=== PATIENT | male | born 1970 | race Caucasian/White ===

== ENCOUNTER 2017-01-10 09:09 | Inpatient (IN) | payer BC ==
[~2017-01-10] VITALS: Ht 182.9 cm; Wt 103.7 kg
[2017-01-10] VITALS (17 sets, daily range): BP systolic 97–127; BP diastolic 53–76; PULSE 54–74; RESP 12–20; Ht 182.9 cm; Wt 103.7 kg
[~2017-01-10 09:09] MED LIST: LOSA50TA6 PO
[2017-01-10] MEDS ORDERED: MELO-216 PO (09:56)
[2017-01-10] MEDS ORDERED: GABA100C14 PO (09:57)
--- NOTE | 2017-01-10 10:24 | HPN ---
Date/Time of Note Date/Time of Note DATE: 01/10/17 TIME: 10:24 Interval H&P Admission Note Pt. seen H&P reviewed: No system changes ELLY ARROYO PA-C Jan 10, 2017 10:24
[2017-01-10] MEDS ORDERED: TRANEXAMIC ACID 1,000 MG in SOD CHLORIDE 0.9% 100 ML IV ONE ×4 (10:30)
[2017-01-10] MEDS ORDERED: CEFAZOLIN 2 GM/50 ML (PMX) 50 ML IVPB SCH (10:30)
[2017-01-10] MEDS ORDERED: DIPHENHYDRAMINE 50 MG INJ IV PRN ×2 (12:00)
[2017-01-10] MEDS ORDERED: METOCLOPRAMIDE 10 MG INJ IV PRN (12:00)
[2017-01-10] MEDS ORDERED: HYDROmorphONE (0.2 MG/ML) 10ML SYG IV PRN ×4 (12:00)
[2017-01-10] MEDS ORDERED: MEPERIDINE 25 MG INJ IV PRN ×2 (12:00)
[2017-01-10] MEDS ORDERED: FENTAnyl 50 MCG/ML VIAL IV PRN ×4 (12:00)
[2017-01-10] MEDS ORDERED: ONDANSETRON 4 MG INJ IV PRN (12:00)
[2017-01-10] MEDS ORDERED: POLYMYXIN/BACITRACIN 1L IRRIG ONE (12:38)
[2017-01-10] MEDS ORDERED: ROCURONIUM 50 MG INJ ONE (13:26)
[2017-01-10] MEDS ORDERED: SUGAMMADEX SODIUM 200 MG/2 ML VIAL IV ONE (13:26)
[2017-01-10] MEDS ORDERED: SUCCINYLCHOLINE CHLORIDE 100 MG/5 ML SYG IV ONE (13:26)
[2017-01-10] MEDS ORDERED: PROPOFOL 20 ML ONE (13:26)
[2017-01-10] MEDS ORDERED: CEFAZOLIN 1 GM INJ ONE (13:26)
[2017-01-10] MEDS ORDERED: LIDOCAINE 2% (SDV) 5 ML INJ ONE (13:26)
[2017-01-10] MEDS ORDERED: FENTAnyl 50 MCG/ML VIAL ONE (13:47)
[2017-01-10] MEDS ORDERED: morphine SULFATE/PF (10 MG/10 ML) INJ ONE (13:58)
[2017-01-10] MEDS ORDERED: BUPIVACAINE 0.5%/EPI (SDV) 30 ML INJ ONE (13:58)
[2017-01-10] MEDS ORDERED: KETOROLAC 30 MG INJ ONE (13:58)
--- NOTE | 2017-01-10 14:55 | SIPON ---
Date/Time of Note Date/Time of Note DATE: 01/10/17 TIME: 14:53 Operative Report Preoperative Diagnosis Left hip osteoarthritis Postoperative Diagnosis Same Operation/Procedure Performed Left total hip replacement Surgeon see signature line chemist assistant none Second assist: ELLY ARROYO PA-C Anesthesia: spinal Estimated blood loss: 150 - 200 ml's Transfusion Required none Specimen Femoral head Grafts/Implants depuy 13 stem, 60 acetabulum, 36+5 ceramic head Complications none NICOLAS JORGENSEN Jan 10, 2017 14:55
--- NOTE | 2017-01-10 15:00 | OPR ---
Date/Time of Note Date/Time of Note DATE: 01/10/17 TIME: 14:55 Operative Report Procedure Date: Jan 10, 2017 Preoperative Diagnosis Left hip osteoarthritis Postoperative Diagnosis same Operation/Procedure Performed Left total hip replacement Surgeon see signature line Senior Developer None Second Senior Developer: ELLY ARROYO PA-C Anesthesia Type: spinal Estimated Blood Loss: 150 - 200 ml's Transfusion none Specimen none Grafts/Implants depuy size 13 stem, 60 mm acetabulum, 36 mm femoral head Tubes/Drains None Complications none Pt Condition Post Procedure: stable Disposition: PACU Indications 46-year-old male with advanced osteoarthritis of his left hip Procedure Description The patient was placed supine on the operating room table. The left hip was prepped and draped in usual manner. Preoperative antibiotics were administered. An anterior approach to the left hip was made. The plane between the sartorius and tensor fascia carlos was developed in a blunt fashion. Branches of the circumflex vessels were identified and cauterized with aqua Mantis. The hip capsule was opened and advanced osteoarthritis was encountered. There was loss of cartilage and deformity of the femoral head. The femoral neck cut was made 1.5 cm proximal to the lesser trochanter as previously templated. Labrum and osteophytes were removed from the acetabulum. Acetabular reaming was done with ScrollMotion reamers up to a size 59. A 60 mm trial cup was placed and found to be well fitting. The cup was placed in 40-45 of abduction and 20 of anteversion. One screw was used to enhance fixation. A liner was placed to accommodate a 36 mm femoral head. The IM canal of the femur was then prepared for a size 13 stem. The stem was used with a high offset neck and a 36 mm head for a trial reduction. The reduction was stable. Leg length was equal. X-rays were obtained to confirm placement of the implants and leg length. Once satisfactory alignment was confirmed, final implants were placed including a size 13 high offset stem and 36 mm ceramic head. This resulted in a stable hip with equal leg length. Final x-rays were satisfactory. The wound was thoroughly irrigated and hemostasis confirmed. The wound was closed in layers using #1 Vicryl for arthrotomy and fascia 2-0 Vicryl for subcutaneous tissue and 3-0 Monocryl for the skin. The patient was transferred to the recovery room in stable condition NICOLAS JORGENSEN Jan 10, 2017 14:59
--- NOTE | 2017-01-10 15:11 | PDOCDIS ---
Discharge Instructions DIAGNOSIS Discharge Diagnosis Status post left total hip arthroplasty via anterior route. CONDITION Patient Condition: Good HOME CARE INSTRUCTIONS: Diet Instructions: Regular ACTIVITY: Activity Restrictions: Slowly Increase Activity Rest between Activity Avoid heavy lifting No Sexual Activity Do not Drive Do not operate Machinery Do not operate Power Tool Avoid Heavy Housework Keep Limb Elevated (May apply cold therapy to the surgical area.) Weight Bearing (Weight-bear as tolerated with front wheeled walker.) Bathing Restrictions: Shower (Mepilex dressing to remain on the hip until postoperative visit. Keep area clean and dry.) FOLLOW UP/APPOINTMENTS Follow-up Plan Follow-up 10-14 days at postoperative appointment provided to you at your preoperative visit. ELLY ARROYO PA-C Jan 10, 2017 15:11
--- NOTE | 2017-01-10 15:21 | RADRPT ---
PROCEDURE: Intraoperative imaging of the left hip with radiography. CLINICAL INDICATION: Left hip pain. Intraoperative. TECHNIQUE: 2 images of the left hip were obtained in the operating room with an image intensifier. No radiologist was in attendance. COMPARISON: No prior study is available for comparison. FINDINGS: Images demonstrate placement of a total left hip arthroplasty. There is a Wallace catheter in the bladder. IMPRESSION: 1. Satisfactory intraoperative imaging of the left hip. RPTAT: QQ .Ish Gordon MD, MD Date Time Electronically viewed and signed by .Ish Gordon MD, MD on 01/10/2017 15:21 .R/
[2017-01-10] MEDS ORDERED: BETHANECHOL 25 MG TAB PO PRN (15:30)
[2017-01-10] MEDS ORDERED: ZOLPIDEM 5 MG TAB PO PRN (15:30)
[2017-01-10] MEDS ORDERED: NACL 0.9% 3 ML SYG IV SCH (15:30)
[2017-01-10] MEDS ORDERED: DIPHENHYDRAMINE 50 MG INJ IM PRN (15:30)
[2017-01-10] MEDS ORDERED: oxyCODONE 5 MG TAB PO PRN (15:30)
[2017-01-10] MEDS ORDERED: DOCUSATE SODIUM 100 MG CAP PO ONE (15:30)
[2017-01-10] MEDS ORDERED: ASPIRIN (EC) 325 MG TAB PO ONE (15:30)
[2017-01-10] MEDS ORDERED: BISACODYL 10 MG SUPP PR PRN (15:30)
[2017-01-10] MEDS ORDERED: NA PHOSPHATE/BIPHOS 133 ML ENEMA PR PRN (15:30)
[2017-01-10] MEDS ORDERED: SENNA/DOCUSATE NA (8.6MG/50MG) TAB PO PRN (15:30)
[2017-01-10] MEDS ORDERED: NALOXONE (0.4 MG/ML) INJ IV PRN (15:30)
[2017-01-10] MEDS ORDERED: MAGNESIUM HYDROXIDE 30ML CUP PO PRN (15:30)
[2017-01-10] MEDS: ONDANSETRON 4 MG INJ IV SCH ×2 (15:33→21:45)
[2017-01-10] MEDS: CEFAZOLIN 1 GM/50 ML (PMX) 50 ML IVPB SCH (15:34)
[2017-01-10] MEDS: SOD CHLORIDE 0.9% 1,000 ML IV SCH (15:54)
[2017-01-10] MEDS: HYDROmorphONE (0.2 MG/ML) 10ML SYG IV PRN ×5 (16:03→16:52)
[2017-01-10] MEDS: KETOROLAC 15 MG INJ IV PRN ×2 (16:03→22:01)
--- NOTE | 2017-01-10 16:40 | RADRPT ---
PROCEDURE: XR knee CLINICAL INDICATION: Left knee pain; post operative TECHNIQUE: AP and lateral portable views of the left knee COMPARISON: None available FINDINGS: The soft tissues are unremarkable. Osseous alignment is within normal limits. No evidence of acute fracture or dislocation. Joint spaces are within normal limits. IMPRESSION: 1. Unremarkable left knee portable radiograph series RPTAT: TT Physician Nemesio Date Time Electronically viewed and signed by Edwige Barfield Physician on 01/10/2017 16:40 JS/
[2017-01-10] MEDS: oxyCODONE 5 MG TAB PO PRN ×2 (18:53→19:53)
--- NOTE | 2017-01-10 18:58 | CONS ---
DATE OF ADMISSION: 01/10/2017 DATE OF CONSULTATION: 01/10/2017 CHIEF COMPLAINT: Status post hip replacement earlier today, hip pain. HISTORY OF PRESENT ILLNESS: A 46-year-old male with past medical history of hypertension who has been having arthritis of his left hip, getting progressively worse, and came in for elective hip replacement which occurred earlier today. The patient presently is in recovery. Denies any chest pain or shortness of breath. No upper or lower GI bleeding. No nausea or vomiting. No fevers or chills. No diarrhea or constipation. PAST MEDICAL HISTORY: As stated above. ALLERGIES: NO KNOWN DRUG ALLERGIES. MEDICATION: 1. Losartan 50 mg daily. 2. Gabapentin 100 mg t.i.d. 3. Meloxicam 7.5 mg b.i.d. PAST SURGICAL HISTORY: He has had skin cyst removals in the past. He has also had right and left inguinal hernia repairs in the past and also hemorrhoid surgery in the past. FAMILY HISTORY: Noncontributory. SOCIAL HISTORY: Negative for smoking. Negative for IV drug abuse. Occasional alcohol use. PHYSICAL EXAMINATION: VITAL SIGNS: Vital signs today are stable. GENERAL: Patient lying in bed, answers appropriately, in no acute distress. HEENT: Pupils equal, round, react to light. Extraocular muscles intact. NECK: Supple. No thyromegaly. LUNGS: Clear to auscultation bilaterally. HEART: S1, S2. No murmurs, rubs, or gallops. ABDOMEN: Soft, nontender, nondistended. Normal bowel sounds. No rebound or guarding. MUSCULOSKELETAL: Decreased range of motion of the left hip. No lower extremity edema or right lower extremity edema. NEUROLOGIC: No focal deficits. LABORATORY DATA: There are no new labs ordered for today. IMPRESSION AND PLAN: A 46-year-old male status post left total hip replacement after experiencing left hip arthritis. 1. Status post left hip replacement earlier today. Again, continue care per primary team, including pain control medications and physical therapy. Labs as ordered per primary care team. 2. Hypertension. Blood pressure is stable. Continue to monitor for now. 3. Gastrointestinal prophylaxis. Patient is on Protonix. 4. Deep vein thrombosis prophylaxis. He is on Celebrex and aspirin. We will continue to follow. Dictated By: Donavan See MD /toribio/raisa /Document#: [id number]
[2017-01-11] VITALS: BP 108/58; RESP 19
[2017-01-11] MEDS: CEFAZOLIN 1 GM/50 ML (PMX) 50 ML IVPB SCH ×2 (00:29→08:14)
[2017-01-11 02:00] VITALS: BP 118/62; RESP 19
[2017-01-11] MEDS: oxyCODONE 5 MG TAB PO PRN ×2 (03:16→08:19)
[2017-01-11] MEDS: SOD CHLORIDE 0.9% 1,000 ML IV SCH (03:58)
[2017-01-11] MEDS: ONDANSETRON 4 MG INJ IV SCH ×2 (03:58→10:05)
[2017-01-11] MEDS: KETOROLAC 15 MG INJ IV PRN (03:58)
[2017-01-11] MEDS ORDERED: PANTOPRAZOLE (EC) 40 MG TAB PO SCH (06:00)
[2017-01-11 06:11] LABS: BASOPHILS % 0.1 % (0.0-2.0); EOSINOPHILS % 0.1 % (0.0-7.0); HEMATOCRIT 30.9 % (42.0-52.0); HEMOGLOBIN 10.7 g/dl (14.0-18.0); LYMPHOCYTES # 1.1 10^3/ul (0.8-2.9); MEAN CORPUSCULAR HEMOGLOBIN 30.7 pg (29.0-33.0); MEAN CORPUSCULAR HGB CONC 34.6 g/dl (32.0-37.0); MEAN CORPUSCULAR VOLUME 88.8 fl (82.0-101.0); MEAN PLATELET VOLUME 9.3 fl (7.4-10.4); MONOCYTE # 0.7 10^3/ul (0.3-0.9); MONOCYTES % 8.3 % (0.0-11.0); NEUTROPHIL # 6.5 10^3/ul (1.6-7.5); PLATELET COUNT 180 10^3/UL (140-415); RED BLOOD COUNT 3.48 10^6/ul (4.70-6.10); RED CELL DISTRIBUTION WIDTH 12.5 % (11.5-14.5); WHITE BLOOD COUNT 8.3 10^3/ul (4.8-10.8)
[2017-01-11 06:39] LABS: CALCIUM 8.2 mg/dl (8.4-10.2); CREATININE 0.87 mg/dl (0.61-1.24); POTASSIUM 3.8 mmol/L (3.5-5.1)
[2017-01-11 07:59] VITALS: BP 103/56; RESP 18
[2017-01-11] MEDS ORDERED: FERROUS FUMARATE (SR) TAB PO SCH (09:00)
[2017-01-11] MEDS ORDERED: DOCUSATE SODIUM 100 MG CAP PO SCH (09:00)
[2017-01-11] MEDS ORDERED: ASPIRIN (EC) 325 MG TAB PO SCH (09:00)
[2017-01-11 09:48] LABS: ADD UMIC NO; UR ASCORBIC ACID NEGATIVE (NEGATIVE); UR BILIRUBIN (Dip) NEGATIVE (NEGATIVE); UR BLOOD (Dip) NEGATIVE (NEGATIVE); UR CLARITY CLEAR (CLEAR); UR COLOR YELLOW (YELLOW); UR GLUCOSE (Dip) NEGATIVE (NEGATIVE); UR KETONES (Dip) NEGATIVE (NEGATIVE); UR LEUKOCYTE ESTERASE (Dip) NEGATIVE Leu/ul (NEGATIVE); UR NITRITE (Dip) NEGATIVE (NEGATIVE); UR SPECIFIC GRAVITY (Dip) 1.016 (1.003-1.030); UR TOTAL PROTEIN (Dip) NEGATIVE (NEGATIVE); UR UROBILINOGEN (Dip) NEGATIVE (NEGATIVE)
[2017-01-11] MEDS: CELECOXIB 100 MG CAP PO SCH (10:05)
--- NOTE | 2017-01-11 11:55 | PN ---
Date/Time of Note Date/Time of Note DATE: 01/11/17 TIME: 11:53 Assessment/Plan VTE Prophylaxis VTE Prophylaxis Intervention: ambulation, SCD's, other (Aspirin 325 Milgram) Lines/Catheters IV Catheter Type (from Nrsg): Saline Lock Wallace in Place (from Nrsg): No Assessment/Plan Assessment/Plan -Pain Meds as needed -ASA for DVT Prophylaxis x 6 weeks outpatient discussed. -Continue monitoring as outpatient on discharge -Follow-up at scheduled postop outpatient appointment or sooner if there is any issue. -Hip precautions discussed -Patient Stable -Discharge to Home with home health Subjective 24 Hr Interval Summary 46-year-old male postop day 1 status post left total hip arthroplasty. No acute overnight events. Patient did experience left knee pain after surgery yesterday. Provided with pain medication which controls knee pain. Continues with knee pain secondary to pre-existing osteoarthritis with extensive movements during surgery. Denies any complaints of the left hip. Has yet to initiate physical therapy. We will start physical therapy today. Pain Control: moderate Exam/Review of Systems Vital Signs Vitals Vital Signs Date Time Temp Pulse Resp B/P Pulse Ox O2 Delivery O2 Flow Rate FiO2 01/11/17 07:59 98.5 65 18 103/56 98 01/10/17 19:00 Room Air Intake and Output 01/10/17 01/10/17 01/11/17 15:00 23:00 07:00 Intake Total 1800 ml 700 ml Output Total 350 ml 900 ml Balance 1450 ml -200 ml Exam Free Text/Dictation -No complications with dressing intact. -Thigh soft -5/5 Quadriceps, Tibialis Anterior, EHL Gastrocnemius/Soleus and Peroneals -Normal Sensation -Palpable DP/PT, Capillary Refill <2 secs -No Distal Edema -Negative Caty Sign/No calf pain -Toes Freely Movable Constitutional: alert, oriented, well developed Results Result Diagram: 01/11/17 0427 01/11/17 0427 ELLY ARROYO PA-C Jan 11, 2017 11:55
--- NOTE | 2017-01-11 14:15 | CONS ---
Date/Time of Note Date/Time of Note DATE: 01/11/17 TIME: 14:12 Consult Date/Type/Reason Admit Date/Time Jan 10, 2017 at 09:09 Initial Consult Date Subjective Had some left knee pain, otherwise no acute events overnght, worked with PT, OT. Objective Vital Signs Date Time Temp Pulse Resp B/P Pulse Ox O2 Delivery O2 Flow Rate FiO2 01/11/17 07:59 98.5 65 18 103/56 98 01/10/17 19:00 Room Air Intake and Output 01/10/17 01/10/17 01/11/17 15:00 23:00 07:00 Intake Total 1800 ml 700 ml Output Total 350 ml 900 ml Balance 1450 ml -200 ml Exam GENERAL: Patient lying in bed, answers appropriately, in no acute distress. HEENT: Pupils equal, round, react to light. Extraocular muscles intact. NECK: Supple. No thyromegaly. LUNGS: Clear to auscultation bilaterally. HEART: S1, S2. No murmurs, rubs, or gallops. ABDOMEN: Soft, nontender, nondistended. Normal bowel sounds. No rebound or guarding. MUSCULOSKELETAL: Decreased range of motion of the left hip. No lower extremity edema or right lower extremity edema. NEUROLOGIC: No focal deficits. Results/Medications Result Diagram: 01/11/1742601/11/17426 Results 24 hrs Laboratory Tests Test 01/11/17 04:27 01/11/17 06:00 White Blood Count 8.3 Red Blood Count 3.48 L Hemoglobin 10.7 L Hematocrit 30.9 L Mean Corpuscular Volume 88.8 Mean Corpuscular Hemoglobin 30.7 Mean Corpuscular Hemoglobin Concent 34.6 Red Cell Distribution Width 12.5 Platelet Count 180 Mean Platelet Volume 9.3 Neutrophils % 78.0 H Lymphocytes % 13.0 L Monocytes % 8.3 Eosinophils % 0.1 Basophils % 0.1 Nucleated Red Blood Cells % 0.0 Neutrophils # 6.5 Lymphocytes # 1.1 Monocytes # 0.7 Eosinophils # 0.0 Basophils # 0.0 Nucleated Red Blood Cells # 0.0 Sodium Level 135 Potassium Level 3.8 Chloride Level 102 Carbon Dioxide Level 26 Anion Gap 11 Blood Urea Nitrogen 14 Creatinine 0.87 Glucose Level 103 Calcium Level 8.2 L Urine Color YELLOW Urine Clarity CLEAR Urine pH 6.0 Urine Specific [place] 1.016 Urine Ketones NEGATIVE Urine Nitrite NEGATIVE Urine Bilirubin NEGATIVE Urine Urobilinogen NEGATIVE Urine Leukocyte Esterase NEGATIVE Urine Hemoglobin NEGATIVE Urine Glucose NEGATIVE Urine Total Protein NEGATIVE Medications Current Medications Sodium Chloride (NS) 1,000 ml @ 80 mls/hr [id number] IV Last administered on 03:58; Admin Dose 80 MLS/HR; Start 01/10/17 at 15:11 Oxycodone HCl (Roxicodone) 20 mg Q3H PRN PO PAIN LEVEL 8-10 Last administered on 01/11/17 08:19; Admin Dose 20 MG; Start 01/10/17 at 15:30 Oxycodone HCl (Roxicodone) 10 mg Q3H PRN PO PAIN LEVEL 4-7 Last administered on 01/10/17 19:53; Admin Dose 10 MG; Start 01/10/17 at 15:30 Oxycodone HCl (Roxicodone) 5 mg Q3H PRN PO PAIN LEVEL 1-3; Start 01/10/17 at 15:30 Zolpidem Tartrate (Ambien) 5 mg HS PRN PO INSOMNIA; Start 01/10/17 at 15:30 Aspirin (Ecotrin) 325 mg DAILY PO Last administered on 01/11/17 08:15; Admin Dose 325 MG; Start 01/11/17 at 09:00 Celecoxib (Celebrex) 100 mg BID PO Last administered on 01/11/17 10:05; Admin Dose 100 MG; Start 01/11/17 at 08:30 Pantoprazole (Protonix Tab) 40 mg DAILY@06 PO Last administered on 01/11/17 05:56; Admin Dose 40 MG; Start 01/11/17 at 06:00 Docusate Sodium/ Ferrous Fumarate (Min-Sequels) 1 tab BID PO Last administered on 01/11/17 08:15; Admin Dose 1 TAB; Start 01/11/17 at 09:00 Docusate Sodium (Colace) 200 mg BID PO Last administered on 01/11/17 08:15; Admin Dose 200 MG; Start 01/11/17 at 09:00; Stop 01/13/17 at 21:01 Simethicone (Mylicon) 80 mg TID PRN PO DISTENSION/GAS/BLOATING; Start at 15:30 Senna/Docusate Sodium (Senokot-S) 2 tab BID PRN PO CONSTIPATION; Start at 15:30 Magnesium Hydroxide (Milk Of Mag) 30 ml HS PRN PO CONSTIPATION; Start at 15:30 Bisacodyl (Dulcolax Supp) 10 mg DAILY PRN [place] CONSTIPATION; Start 01/10/17 at 15:30 Sodium Biphosphate/ Sodium Phosphate (Fleet Enema) 133 ml DAILY PRN [place] CONSTIPATION; Start 01/10/17 at 15:30 Diphenhydramine HCl (Benadryl) 25 mg Q4H PRN IM ITCHING OR RASH; Start at 15:30 Ketorolac Tromethamine (Toradol) 15 mg Q6 PRN IV PAIN Last administered on t 03:58; Admin Dose 15 MG; Start 01/10/17 at 15:30; Stop 01/14/17 at 15: 29 Naloxone HCl (Narcan) 0.2 mg Q2M PRN IV DECREASED REPIRATORY RATE; Start at 15:30 Assessment/Plan Chief Complaint/Hosp Course IMPRESSION AND PLAN: A 46-year-old male status post left total hip replacement POD # 1 after experiencing left hip arthritis. 1. Status post left hip replacement - POD # 1. Again, continue care per primary team, including pain control medications and physical therapy. Labs as ordered per primary care team. 2. Hypertension. Blood pressure is stable. Continue to monitor for now. 3. Gastrointestinal prophylaxis. Patient is on Protonix. 4. Deep vein thrombosis prophylaxis. He is on Celebrex and aspirin. Pt appears medically stable at this time. We will continue to follow. Problems: AYO DEVINE Jan 11, 2017 14:15
--- NOTE | 2017-01-11 15:52 | DS ---
Date/Time of Note Date/Time of Note DATE: 01/11/17 TIME: 15:51 Discharge Summary Admission/Discharge Info Admit Date/Time Jan 10, 2017 at 09:09 Discharge Date/Time Jan 11, 2017 at 14:27 Discharge Diagnosis Status post left total hip arthroplasty via anterior route. Patient Condition: Good Hospital Course On the day of admission, the patient underwent left total hip arthroplasty via anterior route Intraoperative complications: None Postoperative complications: None The patient was given prophylactic antibiotics and anticoagulants. On the day of surgery and first postoperative day patient was started on gait training and was taught usual restrictions following anterior hip replacement On postoperative day 1 dressing was clean dry and intact. No complications were observed. On the day of discharge, the wound was clean and healing well; there was no sign of infection. Wound care instructions were discussed with the patient. Discharge Temperature: 98.5 Discharge White Blood Cell Count: 8.3 Discharge Hemoglobin: 10.7 The patient was discharged home with home health. Arrangements were made for visiting nurses and home health/physical therapy. The patient will be seen in office at scheduled postoperative evaluation date given on their preoperative exam. Should patient complain of any problems prior to scheduled postoperative evaluation date, they may call into outpatient clinic to determine if they need to be scheduled at sooner appointment to be seen immediately if needed. Discharge medications: As per medication reconciliation form Diet: Same as preadmission diet. This is Elly Cortez PA-C dictating discharge summary for Dr. Jhaveri. Home Meds Reported Medications Gabapentin* (Gabapentin*) 100 Mg Capsule, 100 MG PO TID, #90 CAP 01/10/17 Meloxicam* (Meloxicam*) 7.5 Mg Tablet, 7.5 MG PO BID, #30 TAB 01/10/17 Losartan Potassium* (Losartan Potassium*) 50 Mg Tablet, 50 MG PO DAILY, TAB 01/06/17 Follow-up Plan Follow-up 10-14 days at postoperative appointment provided to you at your preoperative visit. Primary Care Provider Not On Staff Doctor Pending Labs Laboratory Tests Test 01/11/17 04:27 01/11/17 06:00 White Blood Count 8.310^3/ul (4.8-10.8) Red Blood Count 3.4810^6/ul (4.70-6.10) Hemoglobin 10.7g/dl (14.0-18.0) Hematocrit 30.9% (42.0-52.0) Mean Corpuscular Volume 88.8fl (82.0-101.0) Mean Corpuscular Hemoglobin 30.7pg (29.0-33.0) Mean Corpuscular Hemoglobin Concent 34.6g/dl (32.0-37.0) Red Cell Distribution Width 12.5% (11.5-14.5) Platelet Count 91785^3/UL (140-415) Mean Platelet Volume 9.3fl (7.4-10.4) Neutrophils % 78.0% (39.0-77.0) Lymphocytes % 13.0% (15.0-51.0) Monocytes % 8.3% (0.0-11.0) Eosinophils % 0.1% (0.0-7.0) Basophils % 0.1% (0.0-2.0) Nucleated Red Blood Cells % 0.0/100WBC (0.0-0.0) Neutrophils # 6.510^3/ul (1.6-7.5) Lymphocytes # 1.110^3/ul (0.8-2.9) Monocytes # 0.710^3/ul (0.3-0.9) Eosinophils # 0.010^3/ul (0.0-0.5) Basophils # 0.010^3/ul (0.0-0.1) Nucleated Red Blood Cells # 0.010^3/ul (0.0-0.0) Sodium Level 135mmol/L (135-144) Potassium Level 3.8mmol/L (3.5-5.1) Chloride Level 102mmol/L (97-110) Carbon Dioxide Level 26mmol/L (21-31) Anion Gap 11 (8-16) Blood Urea Nitrogen 14mg/dl (7-20) Creatinine 0.87mg/dl (0.61-1.24) Glucose Level 103mg/dl (70-220) Calcium Level 8.2mg/dl (8.4-10.2) Urine Color YELLOW (YELLOW) Urine Clarity CLEAR (CLEAR) Urine pH 6.0 (5.0-9.0) Urine Specific [place] 1.016 (1.003-1.030) Urine Ketones NEGATIVEmg/dL (NEGATIVE) Urine Nitrite NEGATIVEmg/dL (NEGATIVE) Urine Bilirubin NEGATIVEmg/dL (NEGATIVE) Urine Urobilinogen NEGATIVEmg/dL (NEGATIVE) Urine Leukocyte Esterase NEGATIVELeu/ul (NEGATIVE) Urine Hemoglobin NEGATIVEmg/dL (NEGATIVE) Urine Glucose NEGATIVEmg/dL (NEGATIVE) Urine Total Protein NEGATIVEmg/dl (NEGATIVE) ELLY ARROYO PA-C Jan 11, 2017 15:52
== END 2017-01-11 14:27 | disposition home health service (06) | DRG 470 ==
LOC: REC 09:09 → MS1 16:55
PROVIDERS: ADMIT Orthopaedic Surgery; ATTEND Orthopaedic Surgery
PROC: 0SRB04Z Replacement of Left Hip Joint with Ceramic on Polyethylene Synthetic Substitute, Open Approach (ICD-10-PCS; principal; 2017-01-10 11:00)
DX: M16.12 Unilateral primary osteoarthritis, left hip (principal); I10 Essential (primary) hypertension; M17.12 Unilateral primary osteoarthritis, left knee
CPT/HCPCS: 73530; 73560; 80048; 81003; 85025; 86850; 86900; 86901; 87081; 87086; 88304; 88311; 97116; 97162; 97166; 97530; C1713; C1776; J0690; J1170; J1885; J2274; J2405; J3010; J7030